=== PATIENT | female | born 1940 | race Caucasian/White ===

== ENCOUNTER 2018-09-09 10:18 | Outpatient (CLI) | payer MEDICARE ==
--- NOTE | 2018-09-09 12:45 | MRI ---
MRI LUMBAR SPINE WITHOUT CONTRAST: DATE: 09/09/2018. COMPARISON: None. HISTORY: Degenerative disk disease of the lumbar spine, low back pain, and bilateral hip radiculopathy, right greater than left. TECHNIQUE: Multiplanar, multisequence MR imaging of the lumbar spine obtained without contrast. FINDINGS: There is severe levoscoliosis of the lumbar spine centered at L3. Sagittal STIR imaging demonstrates no focal area of osseous marrow edema. Assuming 5 lumbar-type clinton tebral bodies, conus medullaris terminates at L1-2. T12-L1: Disk desiccation and disk space narrowing. Mild bilateral facet hypertrophy. No significan t central canal or neural foraminal stenosis. L1-2: There is disk space narrowing and disk desiccation with mild disk bulge. No significant centr al canal stenosis. There is bilateral facet hypertrophy with mild bilateral neural foraminal stenosi s. L2-3: Bilateral facet hypertrophy, most prominent on the right. There is disk space narrowing, disk desiccation, and mild disk bulge. There is moderate right lateral recess stenosis/moderate right ne ural foraminal stenosis. NO significant central canal or left neural foraminal stenosis. L3-4: Bilateral facet hypertrophy and hypertrophy of the ligamentum flavum, right greater than left. There is disk space narrowing, disk desiccation, and mild disk bulge. Mild left neural foraminal s tenosis, severe right neural foraminal stenosis, and moderate right lateral recess stenosis. L4-5: Disk space narrowing, disk desiccation, and mild disk bulge. Prominent bilateral facet hypert rophy, left greater than right. Mild central canal stenosis with prominent left lateral recess steno sis. Severe left neural foraminal stenosis and mild right neural foraminal stenosis. L5-S1: There is disk space narrowing, disk desiccation, and mild disk bulge with a small disk protru gerardo in the left foraminal region. No significant central canal stenosis. Moderate left neural fora rashaad stenosis. No significant right neural foraminal stenosis. The imaged retroperitoneal structures appear grossly unremarkable. IMPRESSION: Multilevel prominent degenerative change within the lumbar spine with severe lumbar spine levoscolios is. POS: JACKY
== END 2018-09-09 10:19 | disposition home or self-care (01) ==
LOC: BICMRI 10:18
PROVIDERS: ATTEND Surgery
DX: M51.36 Other intervertebral disc degeneration, lumbar region (principal); M47.816 Spondylosis without myelopathy or radiculopathy, lumbar region; M41.86 Other forms of scoliosis, lumbar region
CPT/HCPCS: 72148

== ENCOUNTER 2018-11-29 11:49 | Outpatient (CLI) | payer MEDICARE ==
--- NOTE | 2018-12-02 08:43 | MRI ---
NONCONTRAST ENHANCED MRI THORACIC SPINE: HISTORY: Thoracic radiculopathy, M54.14. TECHNIQUE: Multiplanar multisequence noncontrast enhanced MRI images thoracic spine obtained. FINDINGS: Images demonstrate an 8 x 16 mm left T4 paravertebral area of increased T2 signal. This area has decr eased signal on T1 and is compatible with a lesions suggesting a cyst in the left paravertebral region. Further workup using contrast-enhanced MRI to further characterize this region may be of use. The rest of the thoracic spine is unremarkable. No evidence of cord abnormality seen. There is a small left T12-L1 foraminal broad-based disc protrusion involving the left T12-L1 lateral recess and neural foramen. This minimally but not significantly compresses the thecal sac. It does not appear to significantly compress the exiting left T12 nerve root. IMPRESSION: Left T4 paravertebral cyst. This correlates with the radiopaque marker along the upper thoracic regio n. Transcribed Date/Time: 12/02/2018 9:04 AM
== END 2018-11-29 11:50 | disposition home or self-care (01) ==
LOC: BICMRI 11:49
PROVIDERS: ATTEND Anesthesiology Pain Medicine
DX: M54.14 Radiculopathy, thoracic region (principal); M48.8X4 Other specified spondylopathies, thoracic region
CPT/HCPCS: 72146

== ENCOUNTER 2019-02-25 12:41 | Outpatient (CLI) | payer MEDICARE ==
[2019-02-25] MEDS ORDERED: Gadobenate Dimeglumine 529 MG/1 ML (20ML VIAL) ONE (13:38)
--- NOTE | 2019-02-25 15:11 | MRI ---
MRI THORACIC SPINE WITH AND WITHOUT CONTRAST: 02/25/19 HISTORY: 78-year-old female with breast cancer experiencing mid back pain. Further evaluation of abnormality f ound on noncontrast MRI of 11/29/18. FINDINGS: Exaggerated kyphosis of mid thoracic spine. An approximately 2.2 x 1 x 1.5 cm cystic mass (follows fl uid signal intensity on all pulse sequences) abutting the periosteum of the left side of the T4 verte bral body. This does not have a connection to adjacent neural foramen. It does not enhance, and has n ot changed in size since 11/29/18. There is no solid component. Bone marrow signal is normal. Thoracic spinal cord is normal in size and signal, with no syrinx. No e xtrinsic cord impingement, and no high grade central spinal canal stenosis or high grade neural sandy inal stenosis at any level. No focal disc herniation that encroaches upon the spinal canal. No nerve sheath tumor in the neural foramina. No abnormal enhancement in the intramedullary, extramedullary-in tradural, extradural, intraosseous, or perivertebral, spaces. IMPRESSION: 1. Benign cyst in the left perivertebral space at T4 level. 2. Exaggerated kyphosis of the thoracic spine. 3. No other pathology. POS: CET
== END 2019-02-25 12:42 | disposition home or self-care (01) ==
LOC: BICMRI 12:41
PROVIDERS: ATTEND Surgery
DX: D48.0 Neoplasm of uncertain behavior of bone and articular cartilage (principal); M40.204 Unspecified kyphosis, thoracic region; M89.9 Disorder of bone, unspecified
CPT/HCPCS: 72157; A9577

== ENCOUNTER 2022-11-29 13:35 | Inpatient (IN) | payer MEDICARE ==
[~2022-11-29 13:35] MED LIST: Iopamidol 370 76% 100 ML VIAL ONE
[2022-11-29] MEDS ORDERED: Fentanyl CADD 100 ML IV SCH ×2 (14:00→14:15)
[2022-11-29 14:12] LABS: Hemoglobin 11.4 g/dL (12.0-16.0); Mean Corpuscular HGB CONC 31.6 g/dL (32.0-36.0); Mean Corpuscular Hemoglobin 26.2 pg (27.0-31.0); Mean Corpuscular Volume 82.7 fl (78.0-98.0); Mean Platelet Volume 8.9 fL (7.4-10.4); Platelet Count 196 10x3/uL (130-400); RBC Distribution Width 14.9 % (11.5-14.5); Red Blood Cell (RBC) Count 4.36 mill/uL (4.20-5.40); White Blood Cell (WBC) Count 21.9 10x3/uL (4.8-10.8)
[2022-11-29 14:15] LABS: Actual Bicarbonate (HCO3a) 19.3 mEq/L (22-28); Analyzer IN Cardio ER; Base Excess (BEa) -3.5 mEq/L (-2.0 to +3.0); CO2 Tension 28.6 mmHg (35.0-45.0); Calcium, Ionized (arterial) 1.14 mmol/L (1.12-1.30); Carboxyhemoglobin (COHb) 0.3 gm% (0.0-3.0); Hematocrit-ABG 36 % (36.0-47.0); Hemoglobin (Hb) 12.4 g/dL (12.0-16.0); O2 Tension (PaO2), arterial 183.2 mmHg (> 60.0); Potassium - ABG Lab 3.71 mmol/L (3.70-5.30); pH, Arterial 7.448 (7.35-7.45)
[2022-11-29] MEDS ORDERED: Propofol 1,000 MG/100 ML VIAL IV PRN (14:15)
[2022-11-29 14:17] LABS: Puncture Site Right Radial
[2022-11-29] MEDS ORDERED: niCARdipine 25 MG in Sodium Chloride 0.9% 250 ML 250 ML IVPB SCH ×2 (14:30→15:00)
[2022-11-29 14:38] LABS: ALT (SGPT) 27 U/L (8-55); AST (SGOT) 24 U/L (5-34); Albumin 3.5 g/dL (3.4-4.8); Alkaline Phosphatase 57 U/L (40-110); Anion Gap 14 mmol/L (10-20); BUN (Urea Nitrogen) 13 mg/dL (9.8-20.1); Bilirubin, Total 0.3 mg/dL (0.2-1.2); Calc. Creatinine Clearance 0 mL/min (70-130); Calcium 8.4 mg/dL (7.8-10.44); Carbon Dioxide 22 mmol/L (23-31); Chloride 104 mmol/L (98-107); Estimated GFR 63; Globulin 2.3 g/dL (2.4-3.5); Glucose 152 mg/dL (83-110); Protein, Total 5.8 g/dL (5.8-8.1); Sodium 136 mmol/L (136-145)
[2022-11-29 14:47] LABS: Hypochromia SLIGHT = 6-15 cells (100X) (0-5/hpf); Lymphocytes 7 % (21-51); MDiff Complete? YES; Monocytes 11 % (0-10); Neutrophil 82 % (42-75); Ovalocytes SLIGHT = 2-5 cells (100X) (0-1/hpf); Platelet Morphology Comment Appears Adequate; Polychromasia SLIGHT = 2-3 cells (100X) (0-2/hpf)
[2022-11-29] MEDS ORDERED: Propofol 1,000 MG/100 ML VIAL IV ONE (14:51)
[2022-11-29] MEDS ORDERED: Aminocaproic Acid 5 GM in Sodium Chloride 0.9% 250 ML 250 ML IV SCH ×2 (15:00→16:00)
[2022-11-29] MEDS ORDERED: niCARdipine 25 MG/10 ML SDV ONE (15:00)
[2022-11-29 15:09] LABS: CKMB 4.6 ng/mL (0-6.6)
[2022-11-29] MEDS ORDERED: Ondansetron PF 4 MG/2 ML Vial IVP PRN (15:22)
[2022-11-29] MEDS ORDERED: Bisacodyl 10 MG SUPP PR PRN (15:22)
[2022-11-29] MEDS ORDERED: Sodium Chloride 0.9% 1,000 ML IV SCH (15:22)
[2022-11-29] MEDS ORDERED: Guaifenesin DM 100-10/5 ML UDCUP PO PRN (15:22)
[2022-11-29 15:26] LABS: PTT 23.7 sec (22.9-36.1); Prothrombin Time 14.1 sec (12.0-14.7)
[2022-11-29 15:30] LABS: Bacteria/HPF None Seen HPF (None Seen); Bilirubin Negative (Negative); Blood, Urine Negative (Negative); Clarity Clear (Clear); Glucose, Urine (Dipstick) 50 mg/dL (Negative); Ketone, Urine Negative (Negative); Leukocyte Negative Leu/uL (Negative); Nitrite Negative (Negative); Protein, Urine (Dipstick) 30 mg/dL (Neg-Trace); RBC/HPF 0-3 HPF (0-3); Squamous Epithelial None Seen HPF (0-3); Urobilinogen Normal mg/dL (Less than 2); WBC/HPF 0-3 HPF (0-3); pH, Urine 7.5 (5.0-9.0)
[2022-11-29] MEDS ORDERED: Heparin 10,000 UNITS/ 10 ML VIAL ONE (16:14)
[2022-11-29] MEDS ORDERED: fentaNYL PF 100 MCG/2 ML SYRINGE ONE (16:28)
[2022-11-29 18:10] VITALS: TEMP 98.7
[2022-11-29 18:11] VITALS: BMI 24.2
[2022-11-29 18:12] VITALS: BP 156/82
[2022-11-29] MEDS: niMODipine 30 MG CAP PER TUBE SCH ×2 (18:37→20:23)
[2022-11-29] MEDS ORDERED: Famotidine/PF 20 mg/2ml Vial SLOW IVP SCH (21:00)
[2022-11-29] MEDS ORDERED: Sodium Chloride 0.9% 500 ML IV SCH (21:15)
[2022-11-29] MEDS ORDERED: NOREPINEPHRINE 8 MG/250 ML-D5W 250 ML IVPB SCH (21:15)
== END 2022-11-29 21:50 | disposition short-term general hospital (02) | DRG 64 ==
LOC: ERS 13:35 → CCU 14:46
PROVIDERS: ADMIT Emergency Medicine; ATTEND Emergency Medicine
PROC: 4A023N7 Measurement of Cardiac Sampling and Pressure, Left Heart, Percutaneous Approach (ICD-10-PCS; principal; 2022-11-29)
PROC: B2111ZZ Fluoroscopy of Multiple Coronary Arteries using Low Osmolar Contrast (ICD-10-PCS; 2022-11-29)
PROC: B2151ZZ Fluoroscopy of Left Heart using Low Osmolar Contrast (ICD-10-PCS; 2022-11-29)
PROC: 5A1935Z Respiratory Ventilation, Less than 24 Consecutive Hours (ICD-10-PCS; 2022-11-29)
DX: I60.9 Nontraumatic subarachnoid hemorrhage, unspecified (principal); J96.01 Acute respiratory failure with hypoxia; I60.7 Nontraumatic subarachnoid hemorrhage from unspecified intracranial artery; I10 Essential (primary) hypertension; M19.90 Unspecified osteoarthritis, unspecified site; R29.715 NIHSS score 15; Z96.653 Presence of artificial knee joint, bilateral; Z90.710 Acquired absence of both cervix and uterus
CPT/HCPCS: 31500; 36415; 36416; 51702; 70450; 70496; 70498; 71045; 80053; 81003; 81015; 82553; 82805; 83605; 84484; 85025; 85610; 85730; 93005; 94002; 96365; 96366; 96368; J1644; J2704; J3010; J7030; J7050; Q9967; S0017; S0028